=== PATIENT | male | born 1980 | race Caucasian/White ===

== ENCOUNTER 2020-12-28 13:54 | Emergency (ER) | payer OTHER, SELFPAY ==
[2020-12-28 14:08] VITALS: BP 112/71; PULSE 89; RESP 20; TEMP 36.6; O2SAT 98
--- NOTE | 2020-12-28 14:17 | ED.EAR ---
HPI - Ear Problem General Chief complaint: Ear Stated complaint: Ear Pain,Runny Nose Time Seen by Provider: 12/28/20 14:18 Source: patient Mode of arrival: ambulatory Limitations: no limitations History of Present Illness HPI Narrative: Triston Flanagan is a 40 yo male with PMH of seasonal allergies who has had ear pain and increased congestion runny nose for the last 2 days, he has a low-grade fever this morning, looks like he does not feel well states he cannot sleep at night because of the coughing. States he is fully vaccinated as of September; has been sick almost 2 weeks Related Data Home Medications Medication Instructions Recorded Confirmed fexofenadine [Nessa] 180 mg PO DAILY 12/28/20 12/28/20 Allergies Allergy/AdvReac Type Severity Reaction Status Date / Time No Known Allergies Allergy Verified 12/28/20 14:14 Review of Systems Review of Systems: Narrative: CONSTITUTIONAL: Denies fever, chills, sweats. EYES: Denies visual changes, redness, discharge. ENT: Dhas rhinorrhea, has congestion, has sore throat, bilateralotalgia. CARDIOVASCULAR: Denies chest pain, palpitations, edema. RESPIRATORY: Denies dyspnea, wheezing, dry cough GASTROINTESTINAL: Denies abdominal pain, nausea, vomiting, diarrhea. GENITOURINARY: Denies dysuria, hematuria, abnormal discharge SKIN: Denies rash or itching. NEUROLOGIC: Denies numbness, or focal weakness. PSYCHIATRIC: Denies anxiety or depression. PMFSH Past Medical History Medical History Seasonal allergies Family History Family History Other No acute medical problems Social History Social History (Updated 12/28/20 @ 14:28 by Chen Abdalla CNP) Smoking status: Former smoker Smoking end date: 07/14/00 Alcohol intake: current Living arrangements: with family Comments At time of signature, I agree with nursing past medical, surgical, social and family history. There is no relevant family history pertinent to the presenting complaint. Exam Narrative: Exam Narrative: GENERAL: This is a well-nourished, well-developed patient, in moderate distress. HEAD: normocephalic, atraumatic. EYES: Sclera clear/white. Vision is grossly intact. EARS: External ears normal, auditory canals erythema and without drainage, TMs fluid behind right without perforation. Hearing grossly intact. NOSE: External nose normal with nasal discharge, nares with redness, has rhinorrhea. THROAT: Mucous membranes moist, posterior pharynx erythema with no exudate NECK: Neck supple, tender on right-submandibular enlarged nodes bilaterally CARDIOVASCULAR: Regular rate and rhythm without murmurs, gallops, or rubs. RESPIRATORY: Clear to auscultation. Breath sounds equal bilaterally. No wheezes, rales, or rhonchi. GASTROINTESTINAL: Abdomen soft, SKIN: warm, intact with no suspicious lesions or rash, good texture and turgor. NEURO: awake, alert, and oriented to person, place and time. There were no obvious focal neurologic abnormalities. Steady gait EXTREMITIES: Normal range of motion. BACK: Nontender without deformity Course Course Emergency Course: Patient came to [place] with [place] symptoms, painful ears, runny nose, scratchy and itchy throat-has used antihistamines with no effect Started on amoxicillin and prednisone and Mucinex and codeine cough syrup Directions to use good infection control at home Vital Signs Vital signs: Vital Signs Temperature 97.9 F 12/28/20 14:08 Pulse Rate 89 12/28/20 14:08 Respiratory Rate 20 12/28/20 14:08 Blood Pressure 112/71 12/28/20 14:08 Pulse Oximetry 98 12/28/20 14:08 Temperature 97.9 F 12/28/20 14:08 Pulse Rate 89 12/28/20 14:08 Respiratory Rate 20 12/28/20 14:08 Blood Pressure 112/71 12/28/20 14:08 Pulse Oximetry 98 12/28/20 14:08 Medical Decision Making Differential Diagnosis Differential Diagnosis: Sinu
== END 2020-12-28 14:43 | disposition home or self-care (01) ==
PROVIDERS: Emergency Provider Nurse Practitioner; PCP Family Medicine
DX: H66.003 Acute suppurative otitis media without spontaneous rupture of ear drum, bilateral (principal); J01.20 Acute ethmoidal sinusitis, unspecified; Z87.891 Personal history of nicotine dependence
CPT/HCPCS: 99203; G0463

== ENCOUNTER 2024-05-30 09:43 | Emergency (ER) | payer BC, SELFPAY ==
--- NOTE | ~2024-05-30 | XR_ITS ---
Right elbow Technique: AP, oblique, and lateral views were obtained. Clinical History: Pain Findings: No acute fracture or dislocation is seen. Osseous alignment is anatomic. Joint spaces are p reserved. There is no displacement of the fat pads, no evidence of joint effusion. There is probable soft tissue edema over the olecranon and medial aspect of the elbow.. Impression: Extensive soft tissue edema over the olecranon and medial aspect of the elbow. Correlate for bursitis or other soft tissue inflammatory process. No osseous or articular abnormalities. Reviewed, dictated and finalized at location M. 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 Correlate for bursitis or other soft tissue inflammatory process. No osseous or articular abnormalities.
[2024-05-30 10:20] VITALS: BP 115/78; PULSE 62; RESP 16; TEMP 36.8; O2SAT 100
--- NOTE | 2024-05-30 10:42 | ED.UPPEXIN ---
HPI - Extremity Injury (Upper) General Chief Complaint: Extremity Injury, Upper Stated Complaint: RT Elbow Pain Time Seen by Provider: 05/30/24 10:42 Source: patient, RN notes reviewed and old records reviewed Mode of arrival: ambulatory Limitations: no limitations History of Present Illness HPI narrative: 44-year-old male presents to the [facility] with complaints of right elbow pain, swelling, increased warmth and redness. Small abrasion noted. Patient reports that he fell a couple weeks ago landing on his elbow. Over the last 24 hours have started with some swelling, discomfort. Decreased range of motion secondary to pain. Has full range motion of the wrist positive radial pulse. 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 Related Data Allergies Allergy/AdvReac Type Severity Reaction Status Date / Time No Known Allergies Allergy Verified 05/30/24 10:23 Review of Systems Review of Systems: All systems reviewed & are unremarkable except as noted in HPI and below Constitutional: Constitutional: Reports no additional constitutional complaints ENT: Reports system reviewed and no additional complaints, except as documented Cardiovascular: Cardiovascular: Reports no additional cardiovascular complaints, Denies chest pain and Denies dyspnea Respiratory: Respiratory: Reports no additional respiratory complaints, Denies chest congestion, Denies cough and Denies dyspnea Gastrointestinal: Gastrointestinal: Reports no additional gastrointestinal complaints, Denies abdominal pain, Denies nausea and Denies vomiting Musculoskeletal: Musculoskeletal: Reports as per HPI Integumentary/Breasts: Skin/Breast: Reports system reviewed and no additional complaints, except as docu PMFSH Past Medical History Medical History Seasonal allergies Family History Family History Other No acute medical problems Social History Social History Smoking status: Former smoker Smoking end date: 07/14/00 Alcohol intake: current Living arrangements: with family Comments At the time of my signature, I reviewed and agree with the nursing past medical, surgical, social, and family history. There is no relevant family history pertinent to the patient complaint. Exam Const: General: cooperative, healthy appearing, comfortable, no acute distress, well developed, alert and well nourished Nutritional Appearance: well nourished Orientation/consciousness: patient oriented x3 Limitations: no limitations HENMT: Head: normal to inspection Ears: hearing grossly normal bilaterally and external ears normal Face/Nose/Sinus: Normal external nose present, normal facial exam and face symmetric Face and sinus: normal facial exam and face symmetric Eyes: General: appearance normal, both eyes and all related structures Alignment and Position: alignment normal Periorbital: periorbital findings normal Neck: Neck: normal visual inspection, full ROM, no lymphadenopathy and no meningeal signs Chest: Chest palpation & inspection: normal inspection of the chest Resp: Effort & Inspection: normal respiratory effort and able to speak in complete sentences Cardio: Rate: regular rate Skin: General skin exam: normal color and no rashes or lesions noted Lesions: no lesions Rashes: no rashes Other: Abrasion noted posterior right elbow approximately 1 cm in diameter Neuro: General: patient oriented x3, gait normal, tone normal, moves all extremities and no meningeal signs Cognition (Neuro): normal cognition Speech: normal speech Gait exam (Neuro): Normal gait present Extrem: General: normal to inspection, full ROM, capillary refill normal and normal gait Right upper extremity: elbow/forearm tenderness (Posterior), swelling of the olecranon, abnormal ROM pain with active ROM during, warmth, abrasion and distal pulses intact; no ecchymosis Psych: Appearance: grossly normal and well kempt Mental Status: mental status grossly normal Speech and movement: Normal speech and movement present and Clear speech present Affect: normal affect Attitude: cooperative Course Course Level of Care: Express Care Visit Vital Signs Vital signs: Vital Signs Temperature 98.3 F 05/30/24 10:20 Pulse Rate 62 05/30/24 10:20 Respiratory Rate 16 05/30/24 10:20 Blood Pressure 115/78 05/30/24 10:20 Pulse Oximetry 100 05/30/24 10:20 Oxygen Delivery Room Air 05/30/24 10:20 Temperature 98.3 F 05/30/24 10:20 Pulse Rate 62 05/30/24 10:20 Respiratory Rate 16 05/30/24 10:20 Blood Pressure 115/78 05/30/24 10:20 Pulse Oximetry 100 05/30/24 10:20 Oxygen Delivery Room Air 05/30/24 10:20 Reviewed MDM - Extremity Injury (Upper) MDM Narrative Medical decision making narrative: Patient sitting in exam room. Nontoxic, vitals stable. No acute distress. Patient presents with pain, swelling, redness to the posterior elbow. X-ray showed no fractures. Concern for olecranon bursitis as well as cellulitis. Patient is nontoxic, no abnormal vitals. Denies ever having fever. Will treat with antibiotics as well as anti-inflammatory. Kali wrap was applied. Discussed signs and symptoms to seek higher level of care which patient verbalized understanding Discharge instructions reviewed with patient, as well as provided in writing per nursing staff. The instructions also include specific and strict return/GO TO THE ER as well as f/u information. All questions have been answered, and the patient deny any further questions with discharge and discharge plan. Some parts of this dictation were generated by voice recognition software and may contain typographical and/or grammatical inaccuracies. Differential Diagnosis Differential diagnosis: Likely other (Bursitis, cellulitis, fracture) Imaging Data Radiologist's impression: Right elbow Technique: AP, oblique, and lateral views were obtained. Clinical History: Pain Findings: No acute fracture or dislocation is seen. Osseous alignment is anatomic. Joint spaces are preserved. There is no displacement of the fat pads, no evidence of joint effusion. There is probable soft tissue edema over the olecranon and medial aspect of the elbow.. Impression: Extensive soft tissue edema over the olecranon and medial aspect of the elbow. Correlate for bursitis or other soft tissue inflammatory process. No osseous or articular abnormalities. Critical Care Time Critical Care Time Critical Care Time: No Discharge Plan Discharge Clinical Impression: Olecranon bursitis of right elbow, Cellulitis Patient Disposition: Home, Self-Care Condition: Stable Instructions: Antibiotic Form, Cellulitis (ED), Elbow Bursitis (ED) Additional Instructions: Wash twice a day with warm soapy water, pat dry. Symptoms are not improving please follow-up with primary care provider or orthopedist If you are having a hard time finding a physician please call our [facility] liaison at [phone]. Take medication as prescribed For worsening symptoms please go directly to the nearest emergency room Patient Language: Romansh Prescriptions: New indomethacin 50 mg capsule 50 mg PO TID 7 Days Qty: 21 0RF Rx Instructions: administer with food or milk sulfamethoxazole-trimethoprim [Bactrim DS] 800-160 mg tablet 1 tablet PO Q12H Qty: 14 0RF Follow-up/Referrals: Magan Roth MD [Physician] - 1 Week (express care follow up ) Mirta Zuniga DO [Physician] - 2 Weeks PHYSICIAN,ACID REMOVER [Primary Care Provider] - Stand Alone Forms: Work/School Release IP Time of Disposition: 11:29
== END 2024-05-30 11:32 | disposition home or self-care (01) ==
PROVIDERS: Emergency Provider Nurse Practitioner
DX: M70.21 Olecranon bursitis, right elbow (principal); L03.113 Cellulitis of right upper limb; Z87.891 Personal history of nicotine dependence
CPT/HCPCS: 73080; 99213; G0463